=== PATIENT | male | born 1960 | race Caucasian/White ===

== ENCOUNTER → 2024-02-20 08:46 | Outpatient (REF) | payer OTHER, SELFPAY | LOC: PET 08:46 | PROVIDERS: ATTENDING PHYSICIAN Internal Medicine Hematology & Oncology | DX: C82.11 Follicular lymphoma grade II, lymph nodes of head, face, and neck (principal) | CPT/HCPCS: 78815; A9552 ==

== ENCOUNTER → 2024-02-28 10:29 | Outpatient (REF) | payer OTHER, SELFPAY ==
[2024-02-28 10:50] VITALS: BP 127/85; BP_SYST 68
[2024-02-28 11:52] VITALS: BP 134/84
== END ==
LOC: RADI 10:29
PROVIDERS: ATTENDING PHYSICIAN Internal Medicine Hematology & Oncology; FAMILY PHYSICIAN Family Medicine
DX: C82.14 Follicular lymphoma grade II, lymph nodes of axilla and upper limb (principal)
CPT/HCPCS: 88305; 38505; 76942; 88333; 88341; 88342; 88365

== ENCOUNTER 2024-07-01 17:47 | Emergency (ER) | payer OTHER, SELFPAY ==
[2024-07-01 17:49] VITALS: BP 161/85
[2024-07-01] MEDS: ADACEL 0.5 ML IM (18:41)
--- NOTE | 2024-07-01 18:59 | ED.SKININJ ---
HPI-Injury
General
Chief Complaint: Skin Surface Trauma
Source: patient
Exam Limitations: none
Time Seen by Provider: 07/01/24 18:00
Nursing documentation reviewed up to this point in time: agreed with
History of Present Illness-Injury
Is this injury a work related problem?: No
Is pt an associate of [facility]?: No
Initial Injury comments:
Patient to ED for eval of right distal thumb injury. CUt finger on mandolin. Has skin avulsion injury to right distal thumb. Injury occurred just MAIL CALLER
Past History
Past History
ED Past Medical History: None
Review of Systems
Review of Systems
Allergies reviewed?: Yes
All Other Systems: ROS reviewed and negative except as documented in HPI and ROS
Constitutional: Reports no symptoms
Musculoskeletal: Reports no symptoms
Skin: Reports other (Skin avulsion injury to right distal thumb)
Neurological: Reports no symptoms
Psychiatric: Reports no symptoms
Skin Exam
Avulsion
Right Distal Thumb:
Type of avulsion injury: avulsion
Any active bleeding?: low grade venous oozing
Distal skin color and temperature: normal-warm & good color
Normal distal neurovascular exam: Yes
Phy Exam
General Physical Exam
General Presentation: well appearing and no apparent distress
General age: appears stated age
General Skin: warm and dry
General Habitus: normal
Musculoskeletal Exam
Musculoskeletal Exam: full ROM and neuro vasc intact
Skin Exam
Skin Exam: normal color, warm/dry and other (Skin avulsion right distal thumb. Gelfoam applied and bleeding stopped. Dressing applied by RN)
Psychiatric Exam
Psychiatric Exam: normal mood/affect
Course
Orders/Labs/Results
Orders:
Orders
07/01/24 18:26
Tetanus/Diphth/Acelpertussis [Adacel] 0.5 ml IM .ONCE ONE
Vital Signs
Initial and Last Documented VS:
Initial Vital Signs
Temp Pulse Resp BP Pulse Ox
98.5 F 89 18 161 99
07/01/24 17:49 07/01/24 17:49 07/01/24 17:49 07/01/24 17:49 07/01/24 17:49
Last Documented Vital Signs
Temp Pulse Resp BP Pulse Ox
98.5 F 89 18 161 99
07/01/24 17:49 07/01/24 17:49 07/01/24 17:49 07/01/24 17:49 07/01/24 17:49
*Critical Care Note
Total Time (30-74mins, 75-104mins- exclusive of procedures): Not Applicable
ED Attending Note
-
Portions of this chart may have been created with voice recognition software.� Occasional wrong word or��sound alike� substitutions may have occurred due to the inherent limitations of voice recognition software.
Discharge Plan
Departure
Patient Disposition: Home (Routine Discharge)
Date of Disposition: 07/01/24
Time of Disposition: 19:02
Patient with high blood pressure during this ER visit?: No
Condition: Good
Covid-19: Not Applicable
Discharge Problem:
Avulsion of skin of thumb
Instructions: Laceration
Prescriptions:
No Action
sildenafil 100 mg Tablet
100 mg PO DAILY
Referrals:
Leonard Barber MD [Family Provider] -
Activity Restrictions/Additional Instructions:
Keep wound dry for 24 hours. Do not remove gelfoam.
Interventions
Interventions:
*Risk Screen - Suicide Last Done: 07/01/24 17:49
*General Assessment Last Done: 07/01/24 17:49
*Neglect/Abuse Screening Last Done: 07/01/24 17:49
*ED- Fall Risk Assessment Last Done: 07/01/24 17:49
*ED COVID-19 Vaccine History Last Done: 07/01/24 17:49
Discharge Date and Time
Print Language: THAI
== END 2024-07-01 19:28 | disposition home or self-care (01) ==
LOC: EMR 17:47
PROVIDERS: EMERGENCY PHYSICIAN Student in an Organized Health Care Education/Training Program; FAMILY PHYSICIAN Family Medicine
DX: S61.001A Unspecified open wound of right thumb without damage to nail, initial encounter (principal); W27.8XXA Contact with other nonpowered hand tool, initial encounter
CPT/HCPCS: 90471; 99282; 90715